=== PATIENT | female | born 1965 | race Caucasian/White ===

== ENCOUNTER → 2019-01-31 | Outpatient (CLI) | payer BC ==
[~2019-01-31] MED LIST: AMOX875 PO; AZIT500 PO; Estradiol0.5 MG PO; HYDACE10B PO; IBUP200; META800 PO; NAPR500 PO; TOPI25 PO; VENL75ER PO
[2019-02-01 15:06] LABS: HPV 16 Negative (Negative); HPV 18 Negative (Negative); HPV OTHER HR TYPES Negative (Negative)
== END | disposition home or self-care (01) ==
LOC: LAB SHORT 12:29 → LAB 12:29
PROVIDERS: Obstetrics & Gynecology
DX: Z01.411 Encounter for gynecological examination (general) (routine) with abnormal findings (principal); R30.0 Dysuria
CPT/HCPCS: 87086; 87624; G0123